=== PATIENT | male | born 1985 ===

== ENCOUNTER 2018-01-03 01:53 | Emergency (ER) | payer SELFPAY ==
[2018-01-03 02:10] VITALS: O2SAT 100
[2018-01-03] MEDS ORDERED: Sodium Chloride 0.9% 1,000 ML IV STA ×2 (02:21→03:31)
--- NOTE | 2018-01-03 02:28 | ED PDOC ---
HPI: Abdomen Time Seen by Provider: 01/03/18 02:15 Chief Complaint (Nursing): Back Pain Chief Complaint (Provider): abdominal pain History Per: Patient History/Exam Limitations: no limitations Onset/Duration Of Symptoms: Hrs (2), Waxing/Waning Current Symptoms Are (Timing): Still Present Location Of Pain/Discomfort: LUQ, Other (left flank) Associated Symptoms: Nausea, Vomiting (x1) Additional Complaint(s): 32 y/o male presents for evaluation of acute onset left-sided abdominal pain x 2 hours. States pain radiates to left back. Associated vomiting x 1. Denies fever, chest pain, shortness of breath, palpitations, changes in bowel movements , dysuria, hematuria. Past Medical History Reviewed: Historical Data, Nursing Documentation, Vital Signs Vital Signs: Last Vital Signs Temp 98.6 F 01/03/18 02:07 Pulse 64 01/03/18 02:07 Resp 14 01/03/18 02:07 BP 141/86 01/03/18 02:07 Pulse Ox 100 01/03/18 03:18 - Medical History PMH: No Chronic Diseases - Surgical History Surgical History: No Surg Hx - Family History Family History: States: No Known Family Hx - Social History Current smoker - smoking cessation education provided: Yes SMOKER/PACKS PER DAY:: 1 Alcohol: None Drugs: Denies - Home Medications Home Medications: Ambulatory Orders Medication Instructions Recorded Ciprofloxacin HCl [Cipro] 500 mg PO BID #9 tab 01/03/18 Ondansetron [Zofran] 4 mg PO Q8H PRN #10 tab 01/03/18 Tamsulosin [Flomax] 0.4 mg PO DAILY #10 cap 01/03/18 oxyCODONE/Acetaminophen [Percocet 1 ea PO Q6 PRN #12 tab 01/03/18 5/325 mg Tab] - Allergies Allergies/Adverse Reactions: Allergies Allergy/AdvReac Type Severity Reaction Status Date / Time No Known Allergies Allergy Verified 01/03/18 02:07 Review of Systems ROS Statement: Except As Marked, All Systems Reviewed And Found Negative Gastrointestinal: Positive for: Abdominal Pain (luq) Physical Exam - Reviewed Nursing Documentation Reviewed: Yes Vital Signs Reviewed: Yes - Physical Exam Appears: Positive for: Well, Non-toxic, Uncomfortable Head Exam: Positive for: ATRAUMATIC, NORMAL INSPECTION, NORMOCEPHALIC Skin: Positive for: Normal Color Eye Exam: Positive for: Normal appearance ENT: Positive for: Normal ENT Inspection Cardiovascular/Chest: Positive for: Regular Rate, Rhythm Respiratory: Positive for: Normal Breath Sounds Gastrointestinal/Abdominal: Positive for: Bowel Sounds, Soft, Tenderness (LUQ, LLQ, left flank) Back: Negative for: L CVA Tenderness, R CVA Tenderness Extremity: Positive for: Normal ROM Neurologic/Psych: Positive for: Alert, Oriented (x3) - Laboratory Results Result Diagrams: 01/03/18 02:45 01/03/18 02:45 - ECG O2 Sat by Pulse Oximetry: 100 - Progress ED Course And Treament: labs, urine, CT renal protocol, IV fluids, IV toradol EXAM: CT Abdomen and Pelvis Without Intravenous Contrast EXAM DATE/TIME: 01/03/2018 2:21 AM CLINICAL HISTORY: 32 years old, male; Pain; Abdominal pain; Flank; Left; Prior surgery; Surgery date: 6+ months; Surgery type: Appendectomy; Additional info: Left flank pain, vomiting TECHNIQUE: Axial computed tomography images of the abdomen and pelvis without intravenous contrast. All CT scans at this facility use at least one of these dose optimization techniques: automated exposure control; mA and/or kV adjustment per patient size (includes targeted exams where dose is matched to clinical indication); or iterative reconstruction. Coronal and sagittal reformatted images were created and reviewed. COMPARISON: CT - ABDOMEN^RENAL_STONE (ADULT) 10/24/2008 3:40 AM FINDINGS: Lower thorax: No acute findings. ABDOMEN: Liver: Normal. No mass. Gallbladder and bile ducts: Normal. No calcified stones. No ductal dilation. Pancreas: Normal. No ductal dilation. Spleen: Normal. No splenomegaly. Adrenals: Normal. No mass. Kidneys and ureters: Mild left-sided hydronephrosis and anterior secondary to a 3 mm stone at the left UVJ. Stomach and bowel: Normal. No obstruction. No mucosal thickening. Appendix: No evidence of appendicitis. PELVIS: Bladder: Unremarkable as visualized. Reproductive: Unremarkable as visualized. ABDOMEN and PELVIS: Intraperitoneal space: Normal. No free air. No significant fluid collection. Bones/joints: Sacroiliac sclerosis and erosive change suggestive of sacroiliitis. Soft tissues: Unremarkable. Vasculature: Normal. No abdominal aortic aneurysm. Lymph nodes: Normal. No enlarged lymph nodes. IMPRESSION: 1. Mild left-sided hydronephrosis and anterior secondary to a 3 mm stone at the left UVJ. 2. Sacroiliac sclerosis and erosive change suggestive of sacroiliitis. On re-eval, patient states little improvement after TOradol, IV morphine, PO flomax, PO cipro ordered 5:20 Patient states pain improved. Tolerated PO Patient educated on findings, discharged with rx Percocet, Zofran, Cipro, Flomax. Strainer given with instructions on use ADvised follow up Urology 2-3 days FLuids Return precautions given Disposition - Clinical Impression Clinical Impression: Kidney stone on left side - Patient ED Disposition Is Patient to be Admitted: No Counseled Patient/Family Regarding: Studies Performed, Diagnosis, Need For Followup, Rx Given - Disposition Referrals: [facility] [Outside] Galdino Paulson MD [Medical Doctor] - Disposition: Routine/Home Disposition Time: 05:25 Condition: IMPROVED Prescriptions: Ciprofloxacin HCl [Cipro] 500 mg PO BID #9 tab Ondansetron [Zofran] 4 mg PO Q8H PRN #10 tab PRN Reason: Nausea/Vomiting oxyCODONE/Acetaminophen [Percocet 5/325 mg Tab] 1 ea PO Q6 PRN #12 tab PRN Reason: Pain, Severe (8-10) Tamsulosin [Flomax] 0.4 mg PO DAILY #10 cap Instructions: Kidney Stones in Adults, Renal Colic Forms: [employer] ([place])
[2018-01-03 03:01] LABS: BASO % 0.3 % (0.0-2.0); EOS # 0.6 K/uL (0.0-0.7); EOS % 3.7 % (0.0-4.0); LYMPH # 4.1 K/uL (1.0-4.3); LYMPH % 26.8 % (20.0-40.0); MEAN CELL VOLUME 90.8 fl (80.0-94.0); MEAN CORPUSCULAR HEMOGLOBIN 30.7 pg (27.0-31.0); MEAN CORPUSCULAR HGB CONC 33.8 g/dL (33.0-37.0); MEAN PLATELET VOLUME 7.7 fl (7.2-11.7); MONO # 1.7 K/uL (0.0-0.8); MONO % 10.8 % (0.0-10.0); NEUT % 58.4 % (50.0-75.0); NRBC % 0.1 % (0.0-0.0); RBC 4.57 Mil/uL (4.40-5.90); RED CELL DISTRIBUTION WIDTH 13.6 % (11.5-14.5); WHITE BLOOD COUNT 15.5 K/uL (4.8-10.8)
[2018-01-03 03:04] LABS: SQUAMOUS EPITHIAL < 1 /hpf (0-5); URINE BILIRUBIN NEGATIVE (NEGATIVE); URINE BLOOD NEGATIVE (NEGATIVE); URINE CLARITY SLIGHTY-CLOUDY (Clear); URINE COLOR YELLOW (YELLOW); URINE GLUCOSE (UA) NEG (Normal); URINE LEUKOCYTE ESTERASE TRACE Leu/uL (Negative); URINE PROTEIN NEGATIVE (NEGATIVE); URINE UROBILINOGEN 0.2-1.0 mg/dL (0.2-1.0)
[2018-01-03 03:10] LABS: ALB/GLOB RATIO 1.3 (1.0-2.1); ALBUMIN 4.6 g/dL (3.5-5.0); ALT/SGPT 43 U/L (21-72); AST/SGOT 28 U/L (17-59); BLOOD UREA NITROGEN 20 mg/dl (9-20); CALCIUM 9.7 mg/dL (8.4-10.2); GFR NON-AFRICAN AMERICAN > 60; LIPASE 66 U/L (23-300)
[2018-01-03] MEDS ORDERED: Morphine 4 MG/ML VIAL IVP ONE (03:31)
[2018-01-03] MEDS ORDERED: Morphine 4 MG/ML VIAL ONE (03:37)
[2018-01-03 05:30] VITALS: BP 129/83; PULSE 81; RESP 18; TEMP 97.2
--- NOTE | 2018-01-03 10:26 | CT ---
PROCEDURE: CT Abdomen and Pelvis without Oral or IV contrast. HISTORY: left flank pain, vomiting COMPARISON: Images from CT abdomen and pelvis stone protocol 10/24/08. TECHNIQUE: Contiguous axial images of the abdomen and pelvis. No oral or IV contrast administered. Coronal and Sagittal reformats generated and reviewed. Radiation dose: Total exam DLP = 678.95 mGy-cm. This CT exam was performed using one or more of the following dose reduction techniques: Automated exposure control, adjustment of the mA and/or kV according to patient size, and/or use of iterative reconstruction technique. FINDINGS: There is limited evaluation of the solid organs without the administration of IV contrast. LOWER THORAX: No visible consolidation, pleural effusion, or pneumothorax. LIVER: Unremarkable unenhanced appearance. GALLBLADDER AND BILE DUCTS: Unremarkable unenhanced appearance. PANCREAS: Unremarkable unenhanced appearance. SPLEEN: Unremarkable unenhanced appearance. ADRENALS: Unremarkable unenhanced appearance. KIDNEYS AND URETERS: 3 mm calculus at the left UVJ with mild proximal hydroureteronephrosis. No evidence of right-sided hydronephrosis or obstructing calculus. BLADDER: The urinary bladder appears unremarkable. REPRODUCTIVE: Unremarkable. APPENDIX: No secondary signs of acute appendicitis. BOWEL: The stomach is nondistended. Lack of oral contrast limits evaluation for bowel pathology. The bowel loops appear within normal limits of caliber without evidence of intestinal obstruction. PERITONEUM: No significant free fluid. No definite free air. LYMPH NODES: No bulky lymphadenopathy identified. VASCULATURE: No aortic aneurysm. BONES: Sacroiliac sclerosis and erosive changes suggestive of sacroiliitis. OTHER FINDINGS: None. IMPRESSION: 3 mm calculus at the left UVJ with mild proximal hydroureteronephrosis. Sacroiliac sclerosis and erosive changes suggestive of sacroiliitis. Preliminary impression was provided by [employer].
== END 2018-01-03 05:28 | disposition home or self-care (01) ==
LOC: H.ER 01:53
DX: N13.2 Hydronephrosis with renal and ureteral calculous obstruction (principal)
CPT/HCPCS: 74176; 80053; 81003; 83690; 85025; 87086; 96361; 96374; 96375; 99284; J1885; J2270; J7030